=== PATIENT | female | born 1975 | race Two or more races ===

== ENCOUNTER 2022-10-28 13:54 | Emergency (ER) | payer OTHER ==
[~2022-10-28] VITALS: Ht 154.9 cm; Wt 50.8 kg
[~2022-10-28 13:54] MED LIST: PRENATAL1 TAB
== END 2022-10-28 17:47 | disposition home or self-care (01) ==
LOC: ER 13:54
DX: R42 Dizziness and giddiness (principal); Z88.8 Allergy status to other drugs, medicaments and biological substances; Z91.013 Allergy to seafood